=== PATIENT | female | born 1965 | race Caucasian/White ===

== ENCOUNTER → 2016-10-24 | Outpatient (CLI) | payer OTHER ==
[~2016-10-24] MED LIST: ALAVERT10 M1 GT; ALBUTEROL MININEB NEB; ALL DAY ALL1 MG/1 ML GT; BACITRACIN3.5 G1 OU; BISACODYL10 MG/SUPP PR; CALCIUM CITRATE1 T15 PO; CERTAGEN GT; CERTAVITE GT; COLACE GT; GENTLE LAXATIVE10 MG PR; IBUPROFEN LIQUID GT; MILK OF MAGNESIA GT; MIRALAX17 G2 PO; NEXIUM 24HR20 M1 GT; OMEPRAZOLE20 M2 GT; OYSTER CALCIUM500 MG GT; PAMPRIN MULTI-1 EACH GT; PREVACID SOLUTAB GT; SOD BICARBONATE PO; TYL325 GT; TYLENOL325 M1 GT; VIOKACE 10,4401 EACH PO; VITAMIN D-32000 UNI1 GT; VITAMIN D31000 UNI1 DOB; VITAMIN D50000 UNIT GT; ZINC OXIDE30 GM TOP
--- NOTE | ~2016-10-24 | XA175 ---
[facility] A Service of [facility] & [facility] RADIOLOGY TEXT RESULTS PATIENT: TOSHA PLATT [facility] : 69 UNIT #: [id number] AGE: [address]: Garett Natarajan MD SEX: F ORDER DR: [id number] [facility]. [place], [place] [address] [id number] O MR#: [id number] Acc #: [id number] NAME: TOSHA PLATT : 1965 SEX: F STUDY DATE/TIME: 10/24/2016 13:53 [facility] ROOM: STUDY DESCRIPTION: XA Perc G-Tube Placement Attending Physician: Garett Natarajan Sr., M.D. Ordering Physician: Garett Natarajan Sr., M.D. Primary Care Physician: Garett Natarajan Sr., M.D. MEDICAL IMAGING REPORT This report is preliminary unless electronic signature is present PROCEDURE PERFORMED Gastrojejunostomy tube placement. INDICATIONS 51-year-old female with history of a gastric jejunostomy tube however the tube has fallen out. FLUORO The fluoro time is 4.2 minutes. 2 images were obtained. Medications IV Versed and Fentanyl were utilized for conscious sedation. Conscious sedation time was monitored by appropriately credentialed radiology nursing staff. PROCEDURE Risks, benefits, alternatives procedure were discussed with the patient and informed consent was obtained. In the procedure room a time-out was performed, confirming correct patient and procedure. All elements of maximum sterile-barrier technique were utilized according guidelines appropriate for the procedure. TECHNIQUE/FINDINGS The patient's a gastrojejunostomy tube has fallen out. An angled catheter Glidewire were negotiated through the gastrostomy opening and into the jejunum. Contrast was injected confirming satisfactory positioning. Next, the angled catheter was removed and a 22-Malay gastrojejunostomy tube was advanced over the guidewire. Contrast was injected in both the gastric and jejunal ports and tube was in satisfactory position. The gastric retention balloon was filled with 8 mL of sterile water. The patient tolerated procedure well without immediate complication. Recommend preventative maintenance tube exchange in 6 months. IMPRESSION Technically successful gastrojejunostomy tube replacement as described. [facility] A Service of [facility] & [facility] RADIOLOGY TEXT RESULTS PATIENT: TOSHA PLATT LOCATION: [facility] #: [id number] : [birth year] UNIT #: [id number] AGE: [address]: Garett Natarajan MD SEX: F ORDER DR: Recommend a preventative maintenance tube exchange in 6 months. Dictated by... Shawn Burkett M.D. THIS IS AN ELECTRONICALLY VERIFIED REPORT hSawn Burkett M.D. at 10/27/2016 11:20 AM ARS/chemo TD: 10/24/2016 17:10 JOB #: [id number] MEDICAL IMAGING REPORT COPY
== END | disposition home or self-care (01) ==
LOC: CIVR 12:14
DX: Z43.1 Encounter for attention to gastrostomy (principal); R13.10 Dysphagia, unspecified
CPT/HCPCS: C1725; C1769; J2250; J3010; Q9967

== ENCOUNTER → 2017-01-29 | Outpatient (CLI) | payer OTHER ==
--- NOTE | ~2017-01-29 | XA189 ---
[facility] A Service of [facility] & [facility] RADIOLOGY TEXT RESULTS PATIENT: TOSHA PLATT LOCATION: [facility] : 69 UNIT #: [id number] AGE: [address]: RITA TADEO SEX: F ORDER DR: [id number] [facility] [address] [place], [place] [address] [id number] O MR#: [id number] Acc #: [id number] NAME: TOSHA PLATT : 1965 SEX: F STUDY DATE/TIME: 01/29/2017 11:18 UNIT: [facility] ROOM: STUDY DESCRIPTION: XA Replace GJ Tube Attending Physician: Rita Tadeo Ordering Physician: Garett Natarajan Sr., M.D. Primary Care Physician: Garett Natarajan Sr., M.D. MEDICAL IMAGING REPORT This report is preliminary unless electronic signature is present EXAM Gastrojejunostomy tube exchange. HISTORY This patient has recently had gastrojejunostomy tube placed, 10/24/2016. The patient has had recurrent malfunction of the catheter. PROCEDURE The risks, benefits, and alternatives to the procedure were explained to the patient's Power of Electrical Power Engineer, and signed informed consent was obtained. She was placed supine on angiographic table and was prepped and draped in the usual sterile fashion. Time-out was performed, as per protocol. Skin and subcutaneous tissues were anesthetized with buffered lidocaine. Initial pickling drum operator image showed preexisting catheter apparently terminating within the small bowel. Contrast was then injected to confirm location within the small bowel. I advanced a stiff glidewire through the catheter that was then retracted over the wire, and a new gastrojejunostomy catheter was advanced over the wire and positioned within the stomach and small bowel. Patient tolerated the procedure well, and there were no immediate complications. She did receive moderate conscious sedation consisting of 1 mg of Versed and 25 mcg of fentanyl, and I supervised the IVR nurse for a total of 30 minutes of huuu-qz-ctor time. Total fluoroscopy time was 0.9 minutes; AK was 5 mGy. IMPRESSION Replacement of this patient's gastrojejunostomy catheter, as noted above. Fluoroscopy was used during the procedure, and permanent images were saved. [facility] A Service of [facility] & [facility] RADIOLOGY TEXT RESULTS PATIENT: TOSHA PLATT LOCATION: [facility] #: [id number] : [birth year] UNIT #: [id number] AGE: [address]: RITA TADEO SEX: F ORDER DR: Dictated by... Rebekah Arciniega M.D. THIS IS AN ELECTRONICALLY VERIFIED REPORT Rebekah Arciniega M.D. at 02/03/2017 1:20 PM JEREMÍAS/jared TD: 02/02/2017 13:44 JOB #: [id number] MEDICAL IMAGING REPORT Page 1 of 1 COPY
== END | disposition home or self-care (01) ==
LOC: CIVR 09:05
DX: K94.23 Gastrostomy malfunction (principal); R13.10 Dysphagia, unspecified; F73 Profound intellectual disabilities
CPT/HCPCS: C1769; J2250; J3010; Q9967

== ENCOUNTER → 2017-02-13 | Day surgery (SDC) | payer OTHER ==
--- NOTE | ~2017-02-13 | XA136 ---
[facility] A Service of [facility] & [facility] RADIOLOGY TEXT RESULTS PATIENT: TOSHA PLATT LOCATION: [facility] : [birth year] UNIT #: [id number] AGE: [address]: MARIA ALEJANDRA PRICE SEX: F ORDER DR: [id number] [facility] [address] [place], [place] [address] [id number] O MR#: [id number] Acc #: [id number] NAME: TOSHA PLATT : 1965 SEX: F STUDY DATE/TIME: 02/13/2017 12:17 UNIT: [facility] ROOM: STUDY DESCRIPTION: XA Inj G/J/C/D or JG Tube Ordering Physician: Raymundo Alejandre M.D. Primary Care Physician: Garett Natarajan Sr., M.D. MEDICAL IMAGING REPORT This report is preliminary unless electronic signature is present EXAM G-J tube injection and unclogging under fluoroscopy HISTORY History supplied is clogged G-tube. PROCEDURE Procedure was explained to the patient's guardian, she is a leal of the critical access hospital. The J-tube was injected under fluoroscopy and found to be clogged. A guidewire was passed through the clogged and this was cleaned out. Re-injection shows the patent tube to be completely patent. It is in good position with the tip of the tube at the ligament of Treitz. Following the injection, the tube was flushed with saline. Total fluoroscopy time was 4.6 minutes. A total of 2 spot radiographs were obtained. Dictated by... Shant Rico M.D. THIS IS AN ELECTRONICALLY VERIFIED REPORT Shant Rico M.D. at 02/16/2017 5:11 PM SUSAN/yulisa TD: 02/13/2017 18:22 JOB #: [id number] MEDICAL IMAGING REPORT Page 1 of 1 COPY
== END | disposition home or self-care (01) ==
LOC: CIVR 11:57
DX: K94.13 Enterostomy malfunction (principal)
CPT/HCPCS: Q9967

== ENCOUNTER → 2017-05-07 | Outpatient (CLI) | payer OTHER ==
--- NOTE | ~2017-05-07 | XA189 ---
[facility] A Service of [facility] RADIOLOGY TEXT RESULTS PATIENT: TOSHA PLATT LOCATION: [facility] : [birth year] UNIT #: [id number] AGE: [address]: JODY FLOWERS SEX: F ORDER DR: [id number] [facility]. [place], [place] [address] [id number] O MR#: [id number] Acc #: [id number] NAME: TOSHA PLATT : 1965 SEX: F STUDY DATE/TIME: 05/07/2017 14:27 UNIT: [facility] ROOM: STUDY DESCRIPTION: XA Replace GJ Tube Attending Physician: Jody Flowers Referring Physician: Jody Flowers Ordering Physician: Garett Natarajan Sr., M.D. Primary Care Physician: Garett Natarajan Sr. MKanika MEDICAL IMAGING REPORT This report is preliminary unless electronic signature is present PROCEDURE Gastrojejunostomy tube replacement. HISTORY Ms. Platt is a 52-year-old lady who has a malfunctioning gastrojejunostomy tube. This was most recently replaced on February 26, 2017. DESCRIPTION The procedure was explained to the patient's sales representative livestock including risks, benefits, potential complications and potential for alternative forms of treatment. Informed consent was obtained and, prior to initiating procedure, a formal time-out procedure was performed. Using all elements of maximal sterile barrier technique including hand hygiene, caps, sterile gowns and gloves and masks; the upper abdomen was prepped with 2% Chlorhexidine for cutaneous antisepsis and covered with a large sterile sheet. Contrast was injected through the preexisting tube, which showed opacification of the stomach and small bowel. I attempted to advance a stiff glidewire throughout the gastrojejunostomy tube, but could not advance it distally enough to retract the catheter over a wire. Subsequently, the catheter was removed. A C2 catheter was advanced through the tract and C2 catheter and glidewire were advanced into the jejunum. Contrast was injected, which confirmed location within the jejunum and a new gastrojejunostomy catheter was advanced over the wire and positioned within the small bowel. Contrast injection confirmed location within the small bowel and an additional contrast injection through the gastric port confirmed the intragastric location. Patient tolerated procedure well and there were no immediate complications. Total fluoroscopy time was 2.8 minutes. Patient did receive moderate sedation consisting of 0.8 mg of Versed and 12.5 mcg of fentanyl. I supervised the IVR nurse and monitored the patient's vital signs for a total of 13 minutes of raao-mo-ynso time. [facility] Service of [facility] RADIOLOGY TEXT RESULTS PATIENT: TOSHA PLATT LOCATION: [facility] : 69 UNIT #: [id number] AGE: [address]: JODY FLOWERS SEX: F ORDER DR: SHIRIN Successful replacement of this patient's gastrojejunostomy catheter. Fluoroscopy was used during the procedure and permanent images were saved. Catheter is ready for immediate use. Dictated by... Rebekah Arciniega M.D. THIS IS AN ELECTRONICALLY VERIFIED REPORT Rebekah Arciniega M.D. at 05/08/2017 5:58 PM AFF/pc TD: 05/08/2017 11:20 JOB #: [id number] MEDICAL IMAGING REPORT Page 1 of 1 COPY
== END | disposition home or self-care (01) ==
LOC: CIVR 12:52
DX: K94.23 Gastrostomy malfunction (principal)
CPT/HCPCS: 99152; 99153; C1769; J2250; J3010